=== PATIENT | female | born 1980 | race Caucasian/White ===

== ENCOUNTER 2020-10-03 12:40 | Emergency (ER) | payer MEDICAID ==
[~2020-10-03] VITALS: Ht 170.2 cm; Wt 76.0 kg
--- NOTE | 2020-10-03 13:30 | NUR ---
Pt placed on bedside monitor for VS, RN and MD assessments completed.
[2020-10-03] MEDS ORDERED: METHOCARBAMOL 750 MG TABLET ONE (13:45)
[2020-10-03] MEDS ORDERED: KETOROLAC 30 MG/1 ML ONE (13:45)
[2020-10-03] MEDS ORDERED: MORPHINE SULFATE 4 MG/ML, 1ML ONE (13:45)
--- NOTE | 2020-10-03 13:52 | NUR ---
IV started, meds given and manager trade here to take pt to radiology at this time.
[2020-10-03] MEDS ORDERED: METHOCARBAMOL 750 MG TABLET PO ONE (14:00)
[2020-10-03] MEDS ORDERED: MORPHINE SULFATE 4 MG/ML, 1ML IVPush ONE (14:00)
[2020-10-03] MEDS ORDERED: KETOROLAC 30 MG/1 ML IVPush ONE (14:00)
--- NOTE | 2020-10-03 14:15 | NUR ---
US results reviewed from 08/11/20, not today. Noted US tech at bedside to take pt now.
--- NOTE | 2020-10-03 14:30 | NUR ---
Pt states good relief nted with pain now 0/10 after medical collections specialist on reassessment. Xray results reviewed and chart marked for recheck by .
--- NOTE | 2020-10-03 14:44 | NUR ---
Pt able to get out of bed and walk down hallway and back with pain remaining controlled. Pt states she feels a little sore in lower back and top of R buttock, but nothing like it was before. MD notified of roadtest results.
[2020-10-03 15:37] VITALS: BP 129/88
== END 2020-10-03 15:42 | disposition home or self-care (01) ==
LOC: ED 14:39
DX: M48.56XA Collapsed vertebra, not elsewhere classified, lumbar region, initial encounter for fracture (principal); M48.54XA Collapsed vertebra, not elsewhere classified, thoracic region, initial encounter for fracture; X58.XXXA Exposure to other specified factors, initial encounter; Y93.89 Activity, other specified; Y92.89 Other specified places as the place of occurrence of the external cause; Y99.8 Other external cause status
CPT/HCPCS: 72110; 96374; 96375; 99284; J1885; J2270